=== PATIENT | male | born 1985 | race Two or more races ===

== ENCOUNTER 2021-02-10 18:40 | Emergency (ER) | payer MEDICAID ==
[~2021-02-10] VITALS: Ht 175.3 cm; Wt 82.0 kg
[2021-02-10] MEDS ORDERED: IBUP-2029 MT (19:58)
[2021-02-10] MEDS ORDERED: CYCL10TA7 MT (19:58)
[2021-02-10] MEDS ORDERED: CYCLOBENZAPRINE 10MG TABLET PO ONE (20:00)
[2021-02-10] MEDS ORDERED: KETOROLAC 60MG/2ML VIAL IM ONE (20:00)
[2021-02-10 20:21] VITALS: BP 121/82
== END 2021-02-10 20:57 | disposition home or self-care (01) ==
LOC: ER 18:40
DX: G89.29 Other chronic pain (principal); M54.5 Low back pain
CPT/HCPCS: 96372; 99283; J1885